=== PATIENT | female | born 1975 | race Caucasian/White ===

== ENCOUNTER 2018-03-26 16:05 | Emergency (ER) | payer OTHER ==
[~2018-03-26] VITALS: Ht 157.5 cm; Wt 70.8 kg
[~2018-03-26 16:05] MED LIST: DOXYCYCLINE HY100 MG PO; TYLENOL EXTRA500 MG PO
[2018-03-26] MEDS ORDERED: PRENATABS FA T1 EACH (16:58)
== END 2018-03-26 19:44 | disposition home or self-care (01) ==
LOC: ER 16:05
DX: O46.8X2 Other antepartum hemorrhage, second trimester (principal); Z34.82 Encounter for supervision of other normal pregnancy, second trimester

== ENCOUNTER 2018-11-08 11:21 | Inpatient (IN) | payer OTHER ==
[~2018-11-08] VITALS: Ht 157.5 cm; Wt 2.3 kg
[~2018-11-08 11:21] MED LIST changes: +PRENATABS FA T1 EACH
[2018-11-14] MEDS ORDERED: FOLIC ACID1 MG PO (15:22)
[2018-11-14] MEDS ORDERED: PRENATAL TABLE1 EACH PO (15:22)
== END 2018-11-17 16:44 | disposition home or self-care (01) | DRG 784 ==
LOC: OB/GYN 11-11 12:15 → LDR 11-14 12:58 → OB/GYN 11-14 18:27
PROVIDERS: ADMIT Obstetrics & Gynecology
PROC: 4A1HXCZ Monitoring of Products of Conception, Cardiac Rate, External Approach (ICD-10-PCS; 2018-11-14)
PROC: 0UB70ZZ Excision of Bilateral Fallopian Tubes, Open Approach (ICD-10-PCS; 2018-11-14)
PROC: 10D00Z1 Extraction of Products of Conception, Low, Open Approach (ICD-10-PCS; principal; 2018-11-14 16:00)
DX: O34.211 Maternal care for low transverse scar from previous cesarean delivery (principal); O14.03 Mild to moderate pre-eclampsia, third trimester; O75.82 Onset (spontaneous) of labor after 37 completed weeks of gestation but before 39 completed weeks gestation, with delivery by (planned) cesarean section; Z30.2 Encounter for sterilization; Z3A.38 38 weeks gestation of pregnancy; Z37.0 Single live birth